=== PATIENT | male | born 1950 | race Caucasian/White ===

== ENCOUNTER → 2021-07-09 | Outpatient (CLI) | payer OTHER | LOC: HYPER 08:13 | PROVIDERS: ATTEND Emergency Medicine | DX: S81.801A Unspecified open wound, right lower leg, initial encounter (principal); L03.115 Cellulitis of right lower limb; N40.0 Benign prostatic hyperplasia without lower urinary tract symptoms; D64.89 Other specified anemias; E43 Unspecified severe protein-calorie malnutrition; E66.9 Obesity, unspecified; M81.0 Age-related osteoporosis without current pathological fracture; K50.90 Crohn's disease, unspecified, without complications; K21.9 Gastro-esophageal reflux disease without esophagitis; F14.10 Cocaine abuse, uncomplicated; F11.10 Opioid abuse, uncomplicated; F17.210 Nicotine dependence, cigarettes, uncomplicated; Z86.718 Personal history of other venous thrombosis and embolism; X58.XXXA Exposure to other specified factors, initial encounter; Y93.89 Activity, other specified; Y92.89 Other specified places as the place of occurrence of the external cause; Y99.8 Other external cause status ==

== ENCOUNTER → 2021-07-18 | Outpatient (CLI) | payer OTHER | LOC: HYPER 08:46 | PROVIDERS: ATTEND Emergency Medicine | DX: S81.801D Unspecified open wound, right lower leg, subsequent encounter (principal); L03.115 Cellulitis of right lower limb; E43 Unspecified severe protein-calorie malnutrition; D64.89 Other specified anemias; K50.90 Crohn's disease, unspecified, without complications; K21.9 Gastro-esophageal reflux disease without esophagitis; N40.0 Benign prostatic hyperplasia without lower urinary tract symptoms; M81.0 Age-related osteoporosis without current pathological fracture; M41.9 Scoliosis, unspecified; D50.8 Other iron deficiency anemias; E66.9 Obesity, unspecified; F11.90 Opioid use, unspecified, uncomplicated; F17.210 Nicotine dependence, cigarettes, uncomplicated; Z68.1 Body mass index [BMI] 19.9 or less, adult; Z87.01 Personal history of pneumonia (recurrent); Z86.718 Personal history of other venous thrombosis and embolism; Z79.899 Other long term (current) drug therapy; X58.XXXD Exposure to other specified factors, subsequent encounter ==

== ENCOUNTER → 2021-07-23 | Outpatient (CLI) | payer OTHER | LOC: SJCVCIMAG 09:08 | PROVIDERS: ATTEND Emergency Medicine | DX: I70.203 Unspecified atherosclerosis of native arteries of extremities, bilateral legs (principal); L97.918 Non-pressure chronic ulcer of unspecified part of right lower leg with other specified severity ==